=== PATIENT | male | born 1940 | race Caucasian/White ===

== ENCOUNTER 2017-02-17 12:28 | Emergency (ER) | payer MEDICARE, OTHER ==
[~2017-02-17] VITALS: Ht 175.3 cm; Wt 77.1 kg
--- NOTE | 2017-02-17 13:53 | NUR ---
DR PARRA AT BEDSIDE FOR EVAL.
[2017-02-17] MEDS ORDERED: diphenhydrAMINE HCL 25 MG CAPSULE ONE (13:56)
[2017-02-17] MEDS ORDERED: DEXAMETHASONE SOD PHOSPHATE 10 MG/ML VIAL ONE (13:57)
[2017-02-17] MEDS ORDERED: FAMOTIDINE (20 MG) 20 MG TABLET ONE (13:57)
[2017-02-17] MEDS ORDERED: DEXAMETHASONE SOD PHOSPHATE 10 MG/ML VIAL IM ONE (14:00)
[2017-02-17] MEDS ORDERED: FAMOTIDINE (20 MG) 20 MG TABLET PO ONE (14:00)
[2017-02-17] MEDS ORDERED: DIPHENHYDRAMINE HCL 12.5 MG/5 ML UDC PO ONE (14:00)
== END 2017-02-17 14:30 | disposition home or self-care (01) ==
LOC: ER 12:33
DX: T63.441A Toxic effect of venom of bees, accidental (unintentional), initial encounter (principal); I10 Essential (primary) hypertension; Y92.89 Other specified places as the place of occurrence of the external cause
CPT/HCPCS: A4606; J1100; Q0163